=== PATIENT | male | born 1995 | race Two or more races ===

== ENCOUNTER 2019-12-12 05:45 | Emergency (ER) | payer OTHER ==
--- NOTE | 2019-12-12 05:48 | ED Physician Documentation ---
History of Present Illness - Stated complaint Stated Complaint: CHP/HURTS TO BREATHE - History obtained from History obtained from: Patient - Additonal information Additional information: Patient comes emergency department complaining of substernal and para yesterday but got worse today. 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 He states it did not feel that heavy and he did not have any pops or cracks in his chest during the time he was moving it. Patient states he woke up this morning with sharp shooting chest pains around the sternal area and also noticed a dull sensation of pain and pressure. Patient denies any fevers or chills. No cough. He states the pain hurts slightly worse when he takes deep breath. Patient states he is otherwise healthy and has no other complaints at this time. Review of Systems Ten Systems: 10 systems reviewed and negative Constitutional: reports: Reviewed and negative Eyes: reports: Reviewed and negative Ears: reports: Reviewed and negative Nose: reports: Reviewed and negative Throat: reports: Reviewed and negative Cardiac: reports: Chest pain / pressure Respiratory: reports: Reviewed and negative. denies: Dyspnea, Cough GI: reports: Reviewed and negative : reports: Reviewed and negative Skin: reports: Reviewed and negative Musculoskeletal: reports: Reviewed and negative Neurologic: reports: Reviewed and negative Psychiatric: reports: Reviewed and negative Endocrine: reports: Reviewed and negative Immunocompromised: reports: Reviewed and negative PD PAST MEDICAL HISTORY - Present Medications Home Medications: Ambulatory Orders Medication Instructions Recorded Confirmed Naproxen 1 tab PO PRN PRN 12/12/19 12/12/19 PD ED PE NORMAL - Vitals Vital signs reviewed: Yes - General General: Alert and oriented X 3, No acute distress - HEENT HEENT: Atraumatic, PERRL, EOMI, Moist mucous membranes - Neck Neck: Supple, no meningeal sign - Cardiac Cardiac: RRR, No murmur, Strong equal pulses - Respiratory Respiratory: No respiratory distress, Clear bilaterally, Other (No sternal tenderness. Patient has mild left posterior parasternal tenderness and moderate right parasternal tenderness to palpation. Patient states the pain he feels is little bit different than the tenderness on exam.) - Abdomen Abdomen: Soft, Non tender, Non distended - Derm Derm: Warm and dry - Extremities Extremities: No deformity - Neuro Neuro: Alert and oriented X 3 - Psych Psych: Normal mood, Normal affect Results - Vitals Vitals: Vital Signs - 24 hr 12/12/19 05:53 Temperature 36.6 C Heart Rate 78 Respiratory 18 Rate Blood Pressure 140/84 H O2 Saturation 99 Oxygen O2 Source Room air - EKG (time done) 2141 Rate: Rate (enter#) (92) Rhythm: NSR (92) [place]: Normal Intervals: Normal [place] QRS: Normal Ischemia: Normal ST segments. No: T wave inversion Compare to prior EKG: Old EKG unavailable Computer interpretation: Agree with computer - Rads (name of study) Chest XR Radiology: Final report received, EMP read indepedently, See rad report (neg) PD MEDICAL DECISION MAKING - ED course Complexity details: reviewed results, re-evaluated patient, considered differential, d/w patient ED course: Patient was worked up with a screening chest x-ray and EKG, though I felt most likely that patient had a musculoskeletal etiology of his pain. I have advised the patient regarding [id number] treatments, and he is deemed stable for discharge home. We have discussed the usual indications for return. Departure - Departure Disposition: 01 Home, Self Care Clinical Impression: Chest wall muscle strain Qualifiers: Encounter type: initial encounter Qualified Code(s): S29.011A - Strain of muscle and tendon of front wall of thorax, initial encounter Condition: Stable Instructions: ED Contusion Chest Wall, ED Chest Pain Costochondritis Comments: Your EKG and chest x-ray look good. As we have discussed your symptoms are most likely due to strain of some structures of your chest wall from the heavy lifting he did. You may use [id number] pain medications, such as ibuprofen and Tylenol, to help with the pain. Forms: Activity restrictions
[2019-12-12] MEDS ORDERED: ACETAMINOPHEN 325 MG TABLET PO STA (06:22)
[2019-12-12 06:29] VITALS: BP 133/78
--- NOTE | 2019-12-12 07:34 | XRAY Report ---
PROCEDURE: Chest 1 View X-Ray INDICATIONS: chest pain TECHNIQUE: One view of the chest was acquired. COMPARISON: None FINDINGS: Surgical changes and devices: None. Lungs and pleura: No pleural effusions or pneumothorax. Lungs are clear. Mediastinum: Mediastinal contours appear normal. Heart size is normal. Bones and chest wall: No suspicious bony lesions. Overlying soft tissues appear unremarkable. IMPRESSION: Normal examination. Reviewed by: Dalia Main MD, PhD on 12/12/2019 7:33 AM PDT Approved by: Dalia Main MD, PhD on 12/12/2019 7:33 AM PDT Station ID: [id number]
== END 2019-12-12 06:28 | disposition home or self-care (01) ==
LOC: ED 05:45
DX: S29.011A Strain of muscle and tendon of front wall of thorax, initial encounter (principal); X50.0XXA Overexertion from strenuous movement or load, initial encounter; Y93.89 Activity, other specified; Y99.0 Civilian activity done for income or pay
CPT/HCPCS: 71045; 93005; 99282; 99283; A9270

== ENCOUNTER 2020-10-05 08:02 | Outpatient (CLI) | payer OTHER ==
--- NOTE | 2020-10-05 10:17 | MRI Report ---
PROCEDURE: Hip RT W/O INDICATIONS: PAIN IN HIP TECHNIQUE: Noncontrast coronal T1 spin echo and STIR through the bony pelvis. Coronal and axial T2 fast spin ec ho with fat saturation, sagittal T1 spin echo, and oblique axial T2 fast spin echo with fat saturatio n through the hip. COMPARISON: None. FINDINGS: Image quality: Excellent. Bones and joints: Bone marrow of the pelvic ring and proximal femurs show normal signal throughout. No intraosseous lesions or fractures. No avascular necrosis of the femoral heads. The visualized l ower lumbar spine appears normally aligned. Tendons: The gluteus medius and minimus tendons appear intact, without associated muscle atrophy. T he iliopsoas tendon appears intact, without adjacent bursal fluid collections. The origin of the ham string tendon is intact at the ischial tuberosity. Labrum and cartilage: Mildly heterogeneous signal is seen at the anterosuperior labrum, and a small n ondisplaced tear is suspected (for example on image 8 of coronal series 501), although fluid signal i s not definitely seen extending into the defect. No focal cartilage loss identified. The alpha angle of the femur is within normal limits at less than 55 degrees. Soft tissues: Visualized muscles demonstrate normal bulk and internal signal. The proximal sciatic neurovascular bundle appears normal adjacent to the hamstring tendons. No free pelvic fluid. Bladde r wall thickness is normal. Genitourinary structures and bowel loops appear normal where visualized. IMPRESSION: Suspected small nondisplaced tear of the anterosuperior labrum. MR arthrogram may be obt ained for confirmation if indicated clinically. No signs of significant femoroacetabular impingement. Reviewed by: Ap Martinez MD on 10/05/2020 9:16 AM CHIRAG Approved by: Ap Martinez MD on 10/05/2020 9:16 AM CHIRAG Station ID: [id number]
== END 2020-10-05 08:03 | disposition home or self-care (01) ==
LOC: DI 08:02
PROVIDERS: ATTEND Student in an Organized Health Care Education/Training Program
DX: M25.551 Pain in right hip (principal)

== ENCOUNTER 2021-10-08 13:32 | Outpatient (CLI) | payer OTHER ==
--- NOTE | 2021-10-08 14:42 | SLEEP CARE CONSULTATION ---
Information from patient questionnaire entered by Gilda Tee MA. I have reviewed and concur with the information entered by Gilda Tee MA. This document represents the service I personally performed and the decisions made by , Lalitha Giron ARNP. History of Present Illness Service Date and Time: 10/08/2021 1332 Reason for Visit: New patient (ONSET 03/20/2016, NO PRIOR, ) Chief Complaint: reports: Snoring, Frequent awakenings at night Date of Onset: 4 YEARS Usual bedtime: 9-5PM, depending on shift; but currently on days Time it takes to fall asleep: 30 MINUTES Snores at night: Yes Observed to quit breathing while asleep: Yes Sleeps alone due to snoring: No Number of times waking at night: 3-4 Reasons for waking at night: reports: Other (unknown). denies: Choking, Snoring, Gasping for air Toss, Turn, or Twitch while sleeping: Yes Recalls having dreams: Yes Usually gets out of bed at: [id number] Feels refreshed in the morning: No Morning headache: No Sleepy or fatigued during the day: Yes Ever fallen asleep while driving: No Takes day naps: No Dreams during day naps: No Prior sleep studies: No Additional HPI information: I had the pleasure of seeing ANTHONY BARNES today regarding the possibility of him having a sleep disorder. His current complaints are snoring and frequent night awakenings. He states he can go to sleep without a problem but has difficulty s taying asleep. He has tried taking OTC sleep aids to stay asleep and other sleep hygiene. He states he just welcomed a new baby to his family. His has told him he snores but she can sleep in same room. She has told him in the past that he has pauses in breathing when sleeping. He states his father has sleep apnea and uses a CPAP machine. 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 Patient is and lives in [place]. Have you smoked in the past 12 months: Yes Cigarettes per day (20/pack): 1 (VAPE 5MG MONTHLY) Years of smokin Smoking Pack Years: 0 Alcohol use: Yes Alcohol amount and frequency: 1 glass whiskey twice a month Caffeine use: Yes Caffeine amount and frequency: 1 cup coffee a day Family History Family history of sleep disordered breathing: Yes Family Hx Sleep Apnea: Father: Snoring, Sleep apnea - Treated Allergies and Home Medications Known drug allergies: No Drug allergies reviewed: Yes (NKDA) Home medication list reviewed: Yes Allergy and home medication list: Allergies No Known Drug Allergies Allergy (Verified 12/12/19 06:22) Medications: Meloxicam 15 mg twice a day Ibuprofen 800 mg, prn pain Review of Systems Cardiovascular: denies: high blood pressure Gastrointestinal: denies: heartburn Neurological: reports: head trauma (concussion in high school). denies: headaches Psychiatric: denies: anxiety, depression Ear/Nose/Throat: denies: dry mouth/throat, injury to nose, tonsillectomy, wisdom teeth removed Endocrine: denies: thyroid disease Musculoskeletal: reports: joint pain, mobility problems Immunologic: reports: allergies to food or environment (seasonal allergies) Physical Exam Vital signs obtained and entered by: Melanie TEE CMA AAMA Blood Pressure: 134/78 (RESP 16, PULSE 69, RIGHT,) Heart Rate: 70 O2 Saturation: 97 (CLOTH MASK) Height: 5 ft 8 in Weight: 256 lb (CLOTHES) Weight change since last visit: LOSE GYM Body Mass Index: 38.9 BMI Classification: Obese Neck circumference: 15 (INCHES) Mouth and throat: narrow oropharynx Soft palate: long Hard palate: normal Uvula: normal Uvula visualization: 25% Mallampati Class III Tongue: enlarged in size with teeth farr on lateral edges Tonsils: small Neck: normal w/o lymphadenopathy or thyromegaly Heart: regular rate and rhythm Lungs: clear bilaterally Impression and Plan 1. Suspected Obstructive Sleep Apnea-Hypopnea Syndrome, as suggested by a history of loud and irregular snoring, observed cessation of breath while asleep, frequent awakening during the night, unrefreshed sleep and cognitive impairment. Narrow oropharynx and obesity are common predisposing factors for obstructive sleep apnea-hypopnea syndrome. I recommend proceeding to polysomnography to confirm the diagnosis and to assess severity. If the patient has significant sleep disordered breathing, a manual CPAP titration study will also be performed to find the optimal treatment pressure. I informed the patient of what the sleep studies involve and after some discussion, obtained agreement to proceed. The pathophysiology of obstructive sleep apnea-hypopnea syndrome was discussed with the patient and health risks of cardiovascular and cerebrovascular disease if not treated. Risks of drowsy driving discussed in detail and patient advised to avoid long distance driving and to machine puller over at the first sign of drowsiness. Patient agreed to plan. * Schedule polysomnography * Avoid long distance driving or driving when feeling sleepy. * Avoid alcohol, sedative and muscle relaxant around bedtime. * Attempt to lose weight. * Review instructions provided by trained office staff on how to prepare for the sleep study. * Return for follow-up after sleep study completed. Counseling Topics: Weight loss health impact Visit Type: In Office Time Spent with Patient (minutes): 32 Provider Statement: I spent 100% of the Face to Face Visit with the patient with greater than 50% spent counseling the patient and coordination of care.
[2021-10-08 14:43] VITALS: BP 134/78
== END 2021-10-08 13:33 | disposition home or self-care (01) ==
LOC: SC 13:32
PROVIDERS: ATTEND Nurse Practitioner Family
DX: R06.83 Snoring (principal); R06.81 Apnea, not elsewhere classified; G47.8 Other sleep disorders; R41.89 Other symptoms and signs involving cognitive functions and awareness; E66.9 Obesity, unspecified; Z68.38 Body mass index [BMI] 38.0-38.9, adult
CPT/HCPCS: 99203; 99212

== ENCOUNTER 2022-08-02 14:30 | Outpatient (CLI) | payer OTHER ==
--- NOTE | 2022-08-02 15:02 | Sleep Patient Instructions ---
Sleep Center Visit Summary - Patient Visit Information Reason for Visit: Follow up with new oral appliance - Patient Instructions Additional Instructions: You will be completing a sleep study, either an in-lab polysomnography (PSG) or home sleep study (HST) with your oral appliance in place to check effectiveness. You will follow-up in the sleep care office after the sleep study is completed to hear the results and talk about therapy, if needed. You will be called by our office staff to schedule this appointment, but you may contact us with any questions. - Clinic Information Contact: [facility] [address] [place] [address] [email or web address] T: [phone]
--- NOTE | 2022-08-02 15:07 | SLEEP CARE CONSULTATION ---
Information from patient questionnaire entered by Edgardo Ram. I have reviewed and concur with the information entered by Edgardo Ram. This document represents the service I personally performed and the decisions made by , Lalitha Giron ARNP. History of Present Illness Service Date and Time: 08/02/2022 1430 Previous diagnosis: Mild, Obstructive Sleep Apnea-Hypopnea Syndrome AHI: 10.9 (in 2021) Reason for follow up: other (9MONTH F/U NO CPAP) Equipment type: Dental Appliance Prior sleep studies: No Type of Sleep Study: Polysomnography (F/U POLY, 10/28/2021 [facility], POS,) HPI additional information: ANTHONY BARNES was diagnosed to have mild, AHI 10.9, obstructive sleep apnea- hypopnea syndrome and returned today for Oral appliance therapy 9 month follow- up. Sleep Study - Results Type of Sleep Study: Polysomnography (F/U POLY, 10/28/2021 [facility], POS,) Prior sleep studies: No CPAP Compliance Data Compliance data discussion: He has been using his oral appliance for about 4 months. Subjective On therapy, patient: reports: sleeping better, awakening more refreshed, being more awake and alert during the day, more rested overall, other (reduced snoring). denies: drowsiness while driving Initial [place] Sleepiness Scale score: 3 (10/08/2021) Current [place] Sleepiness Scale score: 9 (08/02/22) Allergies and Home Medications Known drug allergies: No Drug allergies reviewed: Yes Home medication list reviewed: Yes (as updated in EMR) Allergy and home medication list: Allergies No Known Drug Allergies Allergy (Verified 08/01/22 09:43) Review of Systems Review of systems same as previous: No (hip surgery Dec 2021) Physical Exam Vital signs obtained and entered by: EDGARDO Zamora MA Blood Pressure: 132/82 (LEFT ARM) Cuff size: long Heart Rate: 85 O2 Saturation: 98 Height: 5 ft 8 in Weight: 269 lb 9.6 oz Weight change since last visit: 12 lbs gained Body Mass Index: 41.0 BMI Classification: Morbidly Obese Impression and Plan 1. Obstructive Sleep Apnea-Hypopnea Syndrome, mild. Using oral appliance therapy, the patient has better sleep quality and is more rested overall. He has been using his oral appliance consistently for about 4 months. I will order a follow up PSG to verify efficiency of the oral appliance. He will follow up here in office after the sleep study. Patient's apnea severity and rationale for treatment to reduce apnea, improve sleep quality and reduce cardiovascular and cerebrovascular events was reviewed. 2. Obesity, unspecified. Currently patients BMI is 41.0. He has gained weight because he suffers from hip pain and cannot exercise at this time. Obesity increases the risk of apnea, CPAP pressure requirements and overall health risks especially cardiovascular and diabetes. Thus patient is advised to lose weight. -Continue oral appliance -PSG/HST to verify effectiveness of oral appliance -Attempt to lose weight as able -Call this office if any problems -Return for follow up after sleep study, or sooner if concerns arise Counseling Topics: Weight loss health impact Visit Type: In Office Time Spent with Patient (minutes): 20 Provider Statement: I spent 100% of the Face to Face Visit with the patient with greater than 50% spent counseling the patient and coordination of care.
[2022-08-02 15:08] VITALS: BP 132/82
== END 2022-08-02 14:31 | disposition home or self-care (01) ==
LOC: SC 14:30
PROVIDERS: ATTEND Nurse Practitioner Family
DX: G47.33 Obstructive sleep apnea (adult) (pediatric) (principal); E66.01 Morbid (severe) obesity due to excess calories; Z68.41 Body mass index [BMI] 40.0-44.9, adult
CPT/HCPCS: 99212; 99213

== ENCOUNTER 2022-08-05 07:45 | Outpatient (CLI) | payer OTHER ==
--- NOTE | 2022-08-05 16:39 | MRI Report ---
PROCEDURE: LUMBAR SPINE WO INDICATIONS: LUMBAR RADICULOPATHY TECHNIQUE: Noncontrast sagittal T1 spin echo and T2 fast echo, sagittal STIR, axial T1 and T2 fast spin echo thr ough the lumbar spine. In cases with scoliosis, additional coronal T2 fast spin echo may be performe d. COMPARISON: None. FINDINGS: Image quality: Excellent. Alignment and Curvature: There is normal bony alignment. Bone Marrow: Marrow is of normal overall signal. No acute vertebral body compression fractures. Spinal Cord: Conus medullaris terminates at the L1 level. Visualized cord demonstrates normal signa l and size. Paraspinous Soft Tissues: No paravertebral masses. T12-L1: No disc bulge, spinal stenosis or foraminal narrowing. L1-L2: Minimal disc bulge with mild spinal stenosis. Epidural lipomatosis is present. No foraminal narrowing. L2-L3: Minimal disc bulge with mild spinal stenosis. Epidural lipomatosis and ligamentum flavum hy pertrophy. No foraminal narrowing. L3-L4: Minimal disc bulge with mild spinal stenosis. No foraminal narrowing. Mild epidural lipomato sis and facet hypertrophy. L4-L5: Minimal disc bulge without spinal stenosis. Neural narrowing. L5-S1: Minimal disc bulge without spinal stenosis. Mild left and minimal right foraminal narrowing. IMPRESSION: Scattered minimal disc bulges. Spinal stenosis is present L1-2 through L3-4 tilt to be predominant secondary to epidural lipomatosis with underlying congenital stenosis. Reviewed by: Vida Hamilton MD on 08/05/2022 4:38 PM PDT Approved by: Vida Hamilton MD on 08/05/2022 4:38 PM PDT Station ID: [id number]
== END 2022-08-05 07:46 | disposition home or self-care (01) ==
LOC: DI 07:45
PROVIDERS: ATTEND Student in an Organized Health Care Education/Training Program
DX: M51.36 Other intervertebral disc degeneration, lumbar region (principal); M48.061 Spinal stenosis, lumbar region without neurogenic claudication; M47.816 Spondylosis without myelopathy or radiculopathy, lumbar region

== ENCOUNTER 2022-08-12 07:45 | Outpatient (CLI) | payer OTHER ==
--- NOTE | 2022-08-12 11:24 | MRI Report ---
PROCEDURE: HIP WO - RT INDICATIONS: HIP PAIN TECHNIQUE: Noncontrast coronal T1 spin echo and STIR through the bony pelvis. Coronal and axial T2 fast spin ec ho with fat saturation, sagittal T1 spin echo, and oblique axial T2 fast spin echo with fat saturatio n through the hip. COMPARISON: Right hip MRI 10/05/2020. FINDINGS: Image quality: Excellent. Bones and joints: Bone marrow of the pelvic ring and proximal femurs show normal signal throughout. No intraosseous lesions or fractures. No avascular necrosis of the femoral heads. The visualized l ower lumbar spine appears normally aligned. Tendons: The gluteus medius and minimus tendons appear intact, without associated muscle atrophy. T he iliopsoas tendon appears intact, without adjacent bursal fluid collections. The origin of the ham string tendon is intact at the ischial tuberosity. The tendons for the direct and indirect heads of the rectus femoris muscle appear intact. Labrum and cartilage: There is irregularity of the anterosuperior labrum that may be related to prio r surgery or chronic partial tearing. Mild degenerative spurring in the glenoid rim. Cystic changes a re seen at the superior femoral head that are new when compared to the prior exam and are likely rela alesha to overlying focal cartilage loss. Mild degenerative spurring in the adjacent acetabulum. There i s normal morphology of the femoral head and acetabulum. Soft tissues: Visualized muscles demonstrate normal bulk and internal signal. The proximal sciatic neurovascular bundle appears normal adjacent to the hamstring tendons. No acute abnormality is seen i n the included pelvis. IMPRESSION: 1.Heterogeneous appearance of the anterosuperior right acetabular labrum may be secondary to prior po stsurgical changes versus chronic partial tearing. 2.Focal subchondral cystic changes at the superior right femoral head are new when compared to the MR I from 10/05/2020, most likely secondary to overlying cartilage loss. 3.No acute trabecular bone injury. No significant ligament or tendon injury. Reviewed by: Ap Martinez MD on 08/12/2022 11:22 AM PDT Approved by: Ap Martinez MD on 08/12/2022 11:22 AM PDT Station ID: [id number]
--- NOTE | 2022-08-12 11:25 | MRI Report ---
PROCEDURE: HIP WO - LT INDICATIONS: PLEURAL EFFUSION, hip pain TECHNIQUE: Noncontrast coronal T1 spin echo and STIR through the bony pelvis. Coronal and axial T2 fast spin ec ho with fat saturation, sagittal T1 spin echo, and oblique axial T2 fast spin echo with fat saturatio n through the hip. COMPARISON: Right hip MRI 10/05/2020 FINDINGS: Image quality: Excellent. Bones and joints: Bone marrow of the pelvic ring and proximal femurs show normal signal throughout. No intraosseous lesions or fractures. No avascular necrosis of the femoral heads. Subchondral cysti c changes are noted in the right femoral head superiorly. The visualized lower lumbar spine appears n ormally aligned. Tendons: The gluteus medius and minimus tendons appear intact, without associated muscle atrophy. T he iliopsoas tendon appears intact, without adjacent bursal fluid collections. The origin of the ham string tendon is intact at the ischial tuberosity. The tendons for the direct and indirect heads of the rectus femoris muscle appear intact. Labrum and cartilage: The acetabular labrum appears intact. Cartilage surface of the femoral head a ppears of normal thickness. There is normal morphology of the femoral head and acetabulum. Soft tissues: Visualized muscles demonstrate normal bulk and internal signal. The proximal sciatic neurovascular bundle appears normal adjacent to the hamstring tendons. No acute abnormality is seen i n the included pelvis. IMPRESSION: 1.No acute trabecular bone injury. No left hip labral tear or focal cartilage defect is seen. No acut e tendon injury. 2.Subchondral cystic changes are seen in the superior aspect of the contralateral right femoral head. Reviewed by: Ap Martinez MD on 08/12/2022 11:23 AM PDT Approved by: Ap Martinez MD on 08/12/2022 11:23 AM PDT Station ID: [id number]
== END 2022-08-12 07:46 | disposition home or self-care (01) ==
LOC: DI 07:45
PROVIDERS: ATTEND Student in an Organized Health Care Education/Training Program
DX: M25.552 Pain in left hip (principal); M25.551 Pain in right hip; M85.68 Other cyst of bone, other site

== ENCOUNTER 2022-09-01 19:33 | Outpatient (CLI) | payer OTHER | END 2022-09-01 19:34 | disposition home or self-care (01) | LOC: SC 19:33 | PROVIDERS: ATTEND Nurse Practitioner Family | DX: G47.33 Obstructive sleep apnea (adult) (pediatric) (principal) | CPT/HCPCS: 95810 ==

== ENCOUNTER 2022-11-01 11:30 | Emergency (ER) | payer OTHER ==
[2022-11-01] MEDS ORDERED: DEXAMETHASONE 10 MG/ML VIAL PO STA (11:56)
[2022-11-01] MEDS ORDERED: CHERRY SYRUP 10 ML UDC PO ONE (11:56)
--- NOTE | 2022-11-01 11:59 | ED Physician Documentation ---
History of Present Illness - Stated complaint Stated Complaint: SORE THROAT,SOA,CHILLS - Chief complaint Chief Complaint: Heent - Additonal information Additional information: 27-year-old male presents emergency department for evaluation of sore throat and fever. Symptoms began yesterday. Reports it hurts to swallow. Has had subjective fevers at home. No cough. He has found that there are tonsil stones on both of his tonsils which she is never had before. Nobody else has been sick at home. Review of Systems Constitutional: reports: Fever Throat: reports: Sore throat Cardiac: reports: Reviewed and negative Respiratory: reports: Reviewed and negative GI: reports: Reviewed and negative : reports: Reviewed and negative PD PAST MEDICAL HISTORY - Past Medical History Past Medical History: Yes HEENT: Other Other Past Medical History: chronic tonsil stones - Past Surgical History Past Surgical History: No - Present Medications Home Medications: Ambulatory Orders Medication Instructions Recorded Confirmed Acetaminophen See Rx Instructions .ROUTE .COMPLEX 08/02/22 10/04/22 Cyclobenzaprine [Flexeril] See Rx Instructions .ROUTE .COMPLEX 08/02/22 10/04/22 Gabapentin [Neurontin] See Rx Instructions .ROUTE .COMPLEX 08/02/22 10/04/22 Meloxicam [Mobic] See Rx Instructions .ROUTE .COMPLEX 08/02/22 10/04/22 methocarbamoL [Methocarbamol] See Rx Instructions .ROUTE .COMPLEX 08/02/22 10/04/22 Penicillin V Potassium 500 mg PO BID #20 tablet 11/01/22 - Allergies Allergies/Adverse Reactions: Allergies Allergy/AdvReac Type Severity Reaction Status Date / Time No Known Drug Allergies Allergy Verified 10/04/22 14:52 - Social History Does the pt smoke?: No Smoking Status: Never smoker Does the pt drink ETOH?: No Does the pt have substance abuse?: No - Immunizations Immunizations are current?: Yes PD ED PE NORMAL - General General: Alert and oriented X 3, No acute distress, Well developed/nourished - HEENT HEENT: Atraumatic, Moist mucous membranes. No: Pharynx benign (Erythematous posterior oropharynx with bilateral tonsillar exudate. Uvula is midline. No soft palate asymmetry or swelling. Mild dysphonia. No trismus. Painful s wallow. Positive tender right anterior cervical lymphadenopathy.) - Neck Neck: Supple, no meningeal sign. No: No adenopathy - Cardiac Cardiac: RRR, No murmur - Respiratory Respiratory: No respiratory distress, Clear bilaterally - Abdomen Abdomen: Normal bowel sounds, Soft, Non tender, Non distended - Derm Derm: Normal color, Warm and dry, No rash - Extremities Extremities: No deformity Results - Vitals Vitals: Vital Signs - 24 hr 11/01/22 11/01/22 11:37 12:12 Temperature 37.7 C 36.5 C Heart Rate 84 91 Respiratory 16 18 Rate Blood Pressure 132/85 H 135/82 H O2 Saturation 96 99 Oxygen O2 Source Room air - Labs Labs: Laboratory Tests 11/01/22 12:08 Group A Strep Rapid Negative PD Medical Decision Making - ED course Complexity details: d/w patient ED course: 27-year-old male presents emergency department for evaluation of 2 days sore throat with the presence of fever, tonsillar exudate and cervical lymphadenopathy. Rapid strep is negative, but based on [facility] criteria will treat empirically with penicillin. Single dose 10 mg Decadron given today in the ER to help with pain and inflammation. 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 Routine conservative care as well as emergent return precautions for failure symptoms to improve was discussed. Departure - Departure Disposition: 01 Home, Self Care Clinical Impression: Pharyngitis Qualifiers: Pharyngitis/tonsillitis etiology: unspecified etiology Qualified Code(s): J02.9 - Acute pharyngitis, unspecified Condition: Stable Record reviewed to determine appropriate education?: Yes Instructions: ED Strep Pharyngitis Poss Prescriptions: Penicillin V Potassium 500 mg PO BID #20 tablet Comments: Mikahil is seen today in the emergency department because for the last few days you have been having a sore throat, fevers at home and now have exudate on your tonsils. Clinically your history and exam is suggestive of strep pharyngitis. Though this is not confirmed I feel that you have enough symptoms to warrant antibiotics at this time. A prescription for penicillin has been sent to the [facility] in [place]. You will take it twice daily for the next 10 days. Gargle with warm salt water 3 times a day. You can take 500 mg of Tylenol 3 times a day or alternate with 600 mg of Motrin also 3 times a day. You were given a single dose of medication called Decadron, a steroid, which should help with pain and inflammation markedly over the next 48 to 72 hours. Return to the ER if you find that your symptoms or not improving, you cannot tolerate your oral secretions, cannot speak or swallow. Forms: PCP List Discharge Date/Time: 11/01/22 12:13
[2022-11-01 12:15] VITALS: BP 135/82; O2SAT 99
[2022-11-01 12:33] LABS: RAPID STREP SCREEN Negative (Negative)
== END 2022-11-01 12:13 | disposition home or self-care (01) ==
LOC: ED 11:30
DX: J02.9 Acute pharyngitis, unspecified (principal)
CPT/HCPCS: 87070; 87430; 99283; A9270; 87633

== ENCOUNTER 2022-11-02 22:28 | Emergency (ER) | payer OTHER ==
--- NOTE | 2022-11-02 23:17 | ED Physician Documentation ---
PD HPI DYSPNEA - Stated complaint Stated Complaint: SOA - Chief complaint Chief Complaint: Resp - History obtained from History obtained from: Patient - Additional information Additional information: HPI from patient. This patient was treated and released from this emergency department yesterday for similar symptoms. At that time, he was given 10 mg of Decadron and started on penicillin in the ER and prescription provided for same; impaired diagnosis of strep pharyngitis was made, although I note that the rapid strep test was negative. He returns at this time due to worsening sore throat, increasing odynophagia, and development of mild dyspnea. He denies cough, fever. He says earlier this evening he noticed "white bumps" in the back of his throat. Review of Systems Constitutional: denies: Fever, Chills, Sweats Throat: reports: Oral lesions / sores, Sore throat, Swollen tonsils Respiratory: reports: Dyspnea. denies: Cough PD PAST MEDICAL HISTORY - Past Medical History HEENT: Other - Past Surgical History Past Surgical History: No - Present Medications Home Medications: Ambulatory Orders Medication Instructions Recorded Confirmed Acetaminophen See Rx Instructions .ROUTE .COMPLEX 08/02/22 11/02/22 Gabapentin [Neurontin] See Rx Instructions .ROUTE .COMPLEX 08/02/22 11/02/22 Meloxicam [Mobic] See Rx Instructions .ROUTE .COMPLEX 08/02/22 11/02/22 methocarbamoL [Methocarbamol] See Rx Instructions .ROUTE .COMPLEX 08/02/22 11/02/22 Penicillin V Potassium 500 mg PO BID #20 tablet 11/01/22 11/02/22 Amox/Clav 875/125 [Augmentin 1 tablet PO Q12H 10 Days #20 tablet 11/02/22 875/125 Tab] Ibuprofen [Motrin] 800 mg PO Q8H PRN #20 tablet 11/02/22 - Allergies Allergies/Adverse Reactions: Allergies Allergy/AdvReac Type Severity Reaction Status Date / Time No Known Drug Allergies Allergy Verified 11/02/22 22:36 - Social History Does the pt smoke?: No Smoking Status: Never smoker Does the pt drink ETOH?: No Does the pt have substance abuse?: No - Immunizations Immunizations are current?: Yes PD ED PE NORMAL - Vitals Vital signs reviewed: Yes - General General: Alert and oriented X 3, No acute distress, Well developed/nourished - HEENT HEENT: Moist mucous membranes - Neck Neck: Supple, no meningeal sign - Cardiac Cardiac: RRR, No murmur - Respiratory Respiratory: No respiratory distress, Clear bilaterally PD ED PE EXPANDED - HEENT HEENT: Pharyngeal erythema, Swollen tonsils (R>L), Tonsillar exudate (R>L), Other (airway widely patent. no lesions on tongue) Results - Vitals Vitals: Vital Signs - 24 hr 11/02/22 11/03/22 22:33 00:07 Temperature 36.9 C Heart Rate 100 87 Respiratory 16 16 Rate Blood Pressure 134/70 H 138/88 H O2 Saturation 96 98 Oxygen O2 Source Room air - Rads (name of study) chest xray Relevant Findings:: Prelim report reviewed, EMP independent interpretation of test (I reviewed these images and my interpretation is no acute cardiopulmonary abnormality including no evidence of pneumonia), See rad report PD Medical Decision Making - ED course Complexity details: reviewed results, considered differential, d/w patient ED course: The throat swab from yesterday tested negative for rapid strep, but it appears that the culture is still pending. No findings on tonight's chest x-ray, and lungs are clear. He does have moderate amount of tonsillar swelling and exudate. Thus, I am broadening bacterial coverage with Augmentin with instructions for him to stop the penicillin. He is given the first dose of Augmentin in the emergency department and be prescribed a 10-day course for Augmentin. He is also given 800 mg of ibuprofen in the emergency department with prescription for same. Return precautions discussed. Departure - Departure Disposition: 01 Home, Self Care Clinical Impression: Pharyngitis Qualifiers: Pharyngitis/tonsillitis etiology: unspecified etiology Qualified Code(s): J02.9 - Acute pharyngitis, unspecified Condition: Good Instructions: ED Strep Pharyngitis Poss Follow-Up: ROBERT SPRINGER MD [Primary Care Provider] - (2-3 days for reevaluation) Prescriptions: Amox/Clav 875/125 [Augmentin 875/125 Tab] 1 tablet PO Q12H 10 Days #20 tablet Ibuprofen [Motrin] 800 mg PO Q8H PRN #20 tablet PRN Reason: PAIN &/OR FEVER Comments: I reviewed the test results from yesterday's visit, and I note that your rapid strep test was negative. You are given antibiotics on yesterday's visit before the result was available because your symptoms and findings on exam are highly suggestive of strep. As we discussed, a second, more accurate test for strep (culture) is still pending, and the results will probably be ready within the next 12 to 24 hours. If the culture confirms that you do indeed have strep, antibiotics are appropriate. However, your exam findings tonight are advanced enough that I would recommend that you complete a course of antibiotics even if the strep culture comes up negative; there are other bacteria that can cause your signs and symptoms, and I am prescribing a different antibiotic (Augmentin) which will provide broader coverage (more bacteria) then penicillin. STOP TAKING THE PENICILLIN. You will be taking the augmentin in its place. I have electronically submitted prescriptions for Augmentin and ibuprofen (800 mg)to the [facility] in [place]. Forms: PCP List Discharge Date/Time: 11/03/22 00:15
[2022-11-02] MEDS ORDERED: AMOX/CLAV 875 MG/125 MG TABLET PO STA (23:45)
[2022-11-02] MEDS ORDERED: IBUPROFEN 800 MG TABLET PO STA (23:45)
[2022-11-02] MEDS ORDERED: HYDROcod/ACET 5/325 Prepack 4 PO STA (23:46)
--- NOTE | 2022-11-02 23:49 | XRAY Report ---
PROCEDURE: Chest 2 View X-Ray INDICATIONS: DYSPNEA TECHNIQUE: 2 views of the chest were acquired. COMPARISON: 12/12/2019. FINDINGS: Surgical changes and devices: None. Lungs and pleura: No pleural effusions or pneumothorax. Lungs are clear. Mediastinum: Mediastinal contours appear normal. Heart size is normal. Bones and chest wall: No suspicious bony lesions. Overlying soft tissues appear unremarkable. IMPRESSION: No acute cardiopulmonary disease. Reviewed by: Norbert Seo MD on 11/02/2022 11:48 PM PDT Approved by: Norbert Seo MD on 11/02/2022 11:48 PM PDT Station ID: [id number]
[2022-11-03 00:12] VITALS: BP 138/88; O2SAT 98
== END 2022-11-03 00:15 | disposition home or self-care (01) ==
LOC: ED 22:28
DX: J02.9 Acute pharyngitis, unspecified (principal)
CPT/HCPCS: 71046; 99283; 99284; A9270